=== PATIENT | male | born 1925 | race Caucasian/White ===

== ENCOUNTER → 2016-09-17 | Outpatient (CLI) | payer OTHER ==
[~2016-09-17] MED LIST: ACET-1311 PO; ANT PO; ATOR-24 PO; CALC500C PO; CLC100X PO; Coumadin PO; DOCU1TAB6 PO; DRGTP12; DRGTP25; ENAL10TA88 PO; ENAL5TAB83 PO; FLM4 PO; FNTTP50 TD; FRS/40 PO; FURO-85 PO; GABA-112 PO; ISOS60TA25 PO; LATA0.009 OPB; METO-217 PO; NITR0.4S UT; NUTR-7 PO; ONDA4TAB46 PO; PANT40TA PO; POLY335019 PO; POTA10CA28 PO; PRS5 PO; RANI300T2 PO; SUCR1TAB29 PO; SUCR5SUS PO; TRAM-10 PO; VLTG EXT; WARF1TAB6 PO; WARF6TAB5 PO; WARF7.5T4 PO; XLTOPS OPB
[2016-09-17 12:46] LABS: INR 3.4 (0.9-1.1); PROTHROMBIN TIME (PATIENT) 38.1 SECONDS (9.0-12.0)
== END | disposition home or self-care (01) ==
LOC: C.LABWYN 14:35
PROVIDERS: ATTEND Family Medicine
DX: I48.91 Unspecified atrial fibrillation (principal)

== ENCOUNTER → 2016-09-22 | Outpatient (CLI) | payer OTHER ==
--- NOTE | 2016-09-22 10:42 | DIAGNOSTIC IMAGING REPORT ---
RIGHT HIP 2 VIEWS CLINICAL HISTORY: Right hip pain. FINDINGS: AP and frog-leg views of the right hip are obtained. Comparison is made to pelvic radiograph dated 04/28/2007. The skeletal structures are osteopenic. No fracture is identified in the right hip or the imaged right hemipelvis. There is advanced arthritic change in the right hip, with bony sclerosis and subchondral cyst formation present in the femoral head and the acetabulum. There is near complete loss of the joint space. The overlying soft tissues are within normal limits. There is atherosclerotic calcification of the right femoral artery. IMPRESSION: 1. No acute bony abnormality is seen in the right hip. 2. Osteopenia and advanced arthritic change of the right hip. This has significantly progressed from the 2006 examination. Electronically signed by: Jm Verma M.D. 09/22/2016 10:40 AM Dictated Date/Time: 09/22/2016 10:39 AM
== END | disposition home or self-care (01) ==
LOC: C.RADBC 10:14
PROVIDERS: ATTEND Anesthesiology
DX: M25.551 Pain in right hip (principal); M85.88 Other specified disorders of bone density and structure, other site; M16.11 Unilateral primary osteoarthritis, right hip

== ENCOUNTER → 2016-10-01 | Outpatient (CLI) | payer OTHER ==
[2016-10-01 12:36] LABS: INR 3.4 (0.9-1.1); PROTHROMBIN TIME (PATIENT) 38.7 SECONDS (9.0-12.0)
== END | disposition home or self-care (01) ==
LOC: C.LABWYN 12:38
PROVIDERS: ATTEND Family Medicine
DX: I48.91 Unspecified atrial fibrillation (principal)